=== PATIENT | female | born 1980 | race Caucasian/White ===

== ENCOUNTER 2017-04-28 10:09 | Observation (INO) | payer MEDICAID, OTHER ==
[~2017-04-28] VITALS: Ht 154.9 cm; Wt 68.0 kg
[~2017-04-28 10:09] MED LIST: [UNRECOGNIZED DRUG - OTHER]
[2017-04-28] MEDS ORDERED: LACTATED RINGER'S 1000 ML INJ 500 ML IV ONE (11:00)
--- NOTE | 2017-04-28 11:14 | PD ---
HPI Chief Complaint 34 weeks and 4 days Uterine contractions Date Seen: Apr 28, 2017 Travel History International Travel<30 Days: No Contact w/Intl Traveler<30Days: No Known Affected Area: No History of Present Illness HPI Pt is a 37 yo at 34 weeks and [address] Greenfield. Seen in her office this morning for TV ultrasound. Apparently had complete placenta previa which has now resolved. Pt reported irregular contractions in office and sent her for evaluation. Pt is in substance abuse recovery and was initially being weaned off Subotex. Has not taken in 1 week. Denies vaginal bleeding or discharge. Active movements Weeks Gestation: 34 Para: 5 : 6 History Past Medical History Narrative Medical h/o substance abuse Asthma Obstetric History Obstetric History Earlier placenta previa , resolved on US today. Past Surgical History Surgical History: No Previous Surgery Family History Family History: Negative Social History Alcohol Use: No Tobacco Use: Yes Substance Abuse: Yes Allergies-Medications (Allergen,Severity, Reaction): Coded Allergies: No Known Allergies (Verified Allergy, Unknown, 04/28/17) Home Meds Reported Medications [opiates] No Conflict Check 06/08/12 Review of Systems Except as stated in HPI: all other systems reviewed are Neg Physical Exam Narrative GENERAL: Well-nourished, well-developed patient. SKIN: Warm and dry. HEAD: Normocephalic and atraumatic. EYES: No scleral icterus. No injection or drainage. ENT: No nasal drainage noted. Mucous membranes pink. Airway patent. NECK: Supple, trachea midline. No JVD. CARDIOVASCULAR: Regular rate and rhythm without murmurs, gallops, or rubs. RESPIRATORY: Breath sounds equal bilaterally. No accessory muscle use. BREASTS: Bilateral exam showed no masses , no retractions, no nipple discharge. ABDOMEN/GI: Abdomen soft, non-tender, bowel sounds present, no rebound, no guarding Gravid to [34] weeks size Fundal Height: [34] GENITOURINARY: External Genitalia: intact and normal in appearance BUS glands: [soft] Cervix: [firm] Dilatation: [closed] Effacement: [long] Station: [-3] Presentation: [vertex] Membranes: [intact] Uterine Contractions: [rare] FHT's: Category: [1] Baseline: [130s] Reactive: [-] Variability: [good] Decels: none-] EXTREMITIES: No cyanosis or edema. BACK: Nontender without obvious deformity. No CVA tenderness. NEUROLOGICAL: Awake and alert. Motor and sensory grossly within normal limits. Five out of 5 muscle strength in all muscle groups. Normal speech. Data Data Vital Signs Reviewed: Yes [facility] Medical Record Reviewed: Yes Plan 37 yo admitted from MD's office with complaint of contractions. Pt had just had TV ultrasound in office, showing resolution of placenta previa. Pt had ultrasound her confirming NO placenta previa, and TV CL was 4.5cm. Contractions spaced out after LR bolus. I discussed case with Dr Arciniega. Pt currently in in-patient recovery. She requests 23 hour observation. She will need Subotex re-started. Diagnosis Diagnosis: Primary Impression: 34 weeks gestation of Additional Impression: Substance abuse affecting in third trimester, antepartum Constantin Canela MD Apr 28, 2017 11:13
[2017-04-28 13:16] LABS: BACTERIA, URINE RARE /hpf; BLOOD, URINE NEG (NEG); COMMENT (UR) CULT NOT INDICATED; CULTURE IF INDICATED CULT NOT INDICATED; GLUCOSE,URINE NEG (NEG); KETONE, URINE NEG (NEG); MUCUS URINE FEW /lpf (OCC); NITRITE,URINE NEG (NEG); PH, URINE 7.5 (5.0-8.5); SQUAMOUS EPITHELIAL CELL URINE 1 /hpf (0-5); URINE COLOR LIGHT-YELLOW (YELLW/STRAW)
[2017-04-28 14:21] LABS: RUBELLA IGG ANTIBODY 41.6 IU/mL (10.0-500.0); RUBELLA STATUS IMMUNE (IMMUNE)
--- NOTE | 2017-04-28 14:50 | PD.CONS ---
HPI Chief Complaint 34 weeks and 4 days Substance abuse in . Date Seen: Apr 28, 2017 Time Seen: 12:30 Travel History International Travel<30 Days: No Contact w/Intl Traveler<30Days: No Known Affected Area: No History of Present Illness HPI Pt is a 37 yo at 34 weeks and [address] Greenfield. Seen in her office this morning for TV ultrasound. Apparently had complete placenta previa which has now resolved. Pt reported irregular contractions in office and sent her for evaluation. Pt is in substance abuse recovery and was initially being weaned off Subotex. Has not taken in 1 week. Denies vaginal bleeding or discharge. Active movements Weeks Gestation: 34 Para: 5 : 6 History Past Medical History Narrative Medical Asthma h/o substance abuse, had been on Subotex until 1 week ago. Obstetric History Obstetric History x 5 term vaginal deliveries Past Surgical History Surgical History: No Previous Surgery Family History Family History: Negative Social History Alcohol Use: No Tobacco Use: Yes Substance Abuse: Yes Allergies-Medications (Allergen,Severity, Reaction): Coded Allergies: No Known Allergies (Verified Allergy, Unknown, 04/28/17) Home Meds Reported Medications [opiates] No Conflict Check 06/08/12 Physical Exam Narrative GENERAL: Well-nourished, well-developed patient. SKIN: Warm and dry. HEAD: Normocephalic and atraumatic. EYES: No scleral icterus. No injection or drainage. ENT: No nasal drainage noted. Mucous membranes pink. Airway patent. NECK: Supple, trachea midline. No JVD. CARDIOVASCULAR: Regular rate and rhythm without murmurs, gallops, or rubs. RESPIRATORY: Breath sounds equal bilaterally. No accessory muscle use. BREASTS: Bilateral exam showed no masses , no retractions, no nipple discharge. ABDOMEN/GI: Abdomen soft, non-tender, bowel sounds present, no rebound, no guarding Gravid to [-] weeks size Fundal Height: [-] GENITOURINARY: External Genitalia: intact and normal in appearance BUS glands: [-] Cervix: [-] Dilatation: [-] Effacement: [-] Station: [-] Presentation: [-] Membranes: [intact or ruptured] Uterine Contractions: [-] FHT's: Category: [-] Baseline: [-] Reactive: [-] Variability: [-] Decels: [-] EXTREMITIES: No cyanosis or edema. BACK: Nontender without obvious deformity. No CVA tenderness. NEUROLOGICAL: Awake and alert. Motor and sensory grossly within normal limits. Five out of 5 muscle strength in all muscle groups. Normal speech. Data Data Orders Orders Vital Signs (Adult) .ON ADMISSION (04/28/17 10:52) ^ Labor Status (04/28/17 10:52) Urinalysis - C+S If Indicated (04/28/17 10:52) Diet Liquid (04/28/17 Lunch) Albuterol Hfa Inh (Proair Hfa Inh) (04/28/17 11:00) Lactated Ringer's 1000 Ml Inj (Lr 1000 M (04/28/17 11:00) Ob Poc Ultrasound (04/28/17 ) Rpr With Reflex To Fta Abs (04/28/17 11:11) Rubella Immune Status (04/28/17 11:11) Vascular Access Team Consult/P PRN (04/28/17 11:23) Vascular Poc Ultrasound (04/28/17 ) Us Ob Repeat/Fu(Growth) (04/28/17 ) Ob (2e) Additional Admit Info (04/28/17 14:04) Labs Laboratory Tests Test 04/28/17 12:00 04/28/17 12:50 Urine Color LIGHT-YELLOW Urine Turbidity CLEAR Urine pH 7.5 Urine Specific [place] 1.008 Urine Protein NEG Urine Glucose (UA) NEG Urine Ketones NEG Urine Occult Blood NEG Urine Nitrite NEG Urine Bilirubin NEG Urine Urobilinogen LESS THAN 2.0 Urine Leukocyte Esterase TRACE Urine RBC LESS THAN 1 Urine WBC LESS THAN 1 Urine Squamous Epithelial Cells 1 Urine Bacteria RARE Urine Mucus FEW Microscopic Urinalysis Comment CULT NOT INDICATED Rubella Immunity Screen IMMUNE Rubella Antibody, Quantitative 41.6 Constantin Canela MD Apr 28, 2017 14:50
[2017-04-28] MEDS ORDERED: ACETAMINOPHEN 325 MG TAB PO PRN (15:00)
[2017-04-28] MEDS ORDERED: SODIUM CHLORIDE 0.9% FLUSH 10 ML FLUSH IV FLUSH PRN (15:00)
[2017-04-28] MEDS ORDERED: ONDANSETRON ODT 4 MG TAB PO PRN (15:00)
[2017-04-28] MEDS ORDERED: DOCUSATE SODIUM 100 MG CAP PO PRN (15:00)
[2017-04-28] MEDS ORDERED: BUPRENORPHINE HCL 8 MG SUBLINGUAL TAB SL ONE (15:30)
[2017-04-28] MEDS ORDERED: TERBUTALINE INJ 1 MG/ML AMP SQ ONE (15:30)
[2017-04-28] MEDS ORDERED: PILL SPLITTER OTHER PRN (15:30)
[2017-04-28] MEDS: ALBUTEROL SULFATE 90 MCG/ACT HFA 8 GM INHALER INH PRN (15:58)
[2017-04-28 16:54] VITALS: RESP 16
[2017-04-28 19:46] VITALS: BP 126/69; PULSE 98; RESP 18; TEMP 97.9
[2017-04-28] MEDS: SODIUM CHLORIDE 0.9% FLUSH 10 ML FLUSH IV FLUSH SCH (21:00)
--- NOTE | 2017-04-28 23:54 | PD.CONS ---
HPI Chief Complaint 34+ week IUP with sonographic diagnosis of complete previa at 29 weeks-- confirmed on weekly sonogram until today when BPP indicated no previa. Infant initially breech and now vertex. Complaining of regular contractions. Complaining of severe withdrawal symptoms--sweating, goosebumps, nausea, yawning. Feels desperately that she wants to use. Date Seen: Apr 28, 2017 Time Seen: 08:00 Travel History International Travel<30 Days: No Contact w/Intl Traveler<30Days: No Known Affected Area: No History of Present Illness HPI 37 yo swf well known to [facility], correctional system and health care system-- first brought to my office from detention at about 29 weeks. Incarcerated for drug violations. Had been using 6 to 8 of the 8 mg dilaudid pills IV when incarcerated. Started on subutex 2 mg in detention with significant withdrawal symptoms initially, but none at the time of the 29 week evaluation. At that visit, sonogram showed complete previa. Court petitioned to divert patient from detention to [facility] on subutex, or from detention to [facility] for detox and transition to eating disorder specialist abstinence. Delay in transition due to confusion at the level of the public relations senior associate and court order. Patient initially wanted to detox and go to [facility] opioid free in anticipation of 36 week primary section. Has been at detox since Monday and is highly symptomatic and miserable. Has marked abdominal pain but no bleeding. Weekly BPP today showed NO previa and now vertex with normal KIMBERLEE and cervical length. Because of regular UCs, sent to OB triage for further evaluation. At [facility] noted on ultrasound to NOT have a previa. Other parameters consistent with those found in our office. Contractions initially stopped with hydration, but then resumed, requiring a dose of terbutaline. Patient has changed her mind and desires to resume MAT. Johanna has been to [facility] before. She has been diverted from detention to [facility] before , and has eloped. She acknowledges she is at risk of eloping again--especially since she now does not fear a bleeding crisis from a previa and may not need the 36 week primary section on 05/10/17 as planned. Weeks Gestation: 34 History Obstetric History Obstetric History prior term vaginal deliveries all children with their respective fathers or adopted out. Past Surgical History Surgical History: No Previous Surgery Family History Family History: Negative Allergies-Medications (Allergen,Severity, Reaction): Coded Allergies: No Known Allergies (Verified Allergy, Unknown, 04/28/17) Home Meds Reported Medications [opiates] No Conflict Check 06/08/12 Review of Systems Gastrointestinal: Nausea, Constipation Musculoskeletal: Cramping Physical Exam Vital Signs Date Time Temp Pulse Resp B/P (MAP) Pulse Ox O2 Delivery O2 Flow Rate FiO2 04/28/17 19:46 97.9 04/28/17 19:46 98 18 126/69 (88) 04/28/17 16:54 16 Narrative GENERAL: Well-nourished, well-developed patient. SKIN: Warm and dry. HEAD: Normocephalic and atraumatic. EYES: No scleral icterus. No injection or drainage. ENT: No nasal drainage noted. Mucous membranes pink. Airway patent. NECK: Supple, trachea midline. No JVD. CARDIOVASCULAR: Regular rate and rhythm without murmurs, gallops, or rubs. RESPIRATORY: Breath sounds equal bilaterally. No accessory muscle use. BREASTS: Bilateral exam showed no masses , no retractions, no nipple discharge. ABDOMEN/GI: Abdomen soft, non-tender, bowel sounds present, no rebound, no guarding 34 cm FH strip category one regular UCs since resolved cervix long,closed,soft and posterior EXTREMITIES: No cyanosis or edema. BACK: Nontender without obvious deformity. No CVA tenderness. NEUROLOGICAL: Awake and alert. Motor and sensory grossly within normal limits. Five out of 5 muscle strength in all muscle groups. Normal speech. Data Data Vital Signs Reviewed: Yes Orders Orders Vital Signs (Adult) .ON ADMISSION (04/28/17 10:52) ^ Labor Status (04/28/17 10:52) Urinalysis - C+S If Indicated (04/28/17 10:52) Diet Liquid (04/28/17 Lunch) Albuterol Hfa Inh (Proair Hfa Inh) (04/28/17 11:00) Lactated Ringer's 1000 Ml Inj (Lr 1000 M (04/28/17 11:00) Ob Poc Ultrasound (04/28/17 ) Rpr With Reflex To Fta Abs (04/28/17 11:11) Rubella Immune Status (04/28/17 11:11) Vascular Access Team Consult/P PRN (04/28/17 11:23) Vascular Poc Ultrasound (04/28/17 ) Us Ob Repeat/Fu(Growth) (04/28/17 ) Ob (2e) Additional Admit Info (04/28/17 14:04) Place In Observation (04/28/17 ) Place In Observation (04/28/17 ) Diet Regular Basic (04/28/17 Dinner) Vital Signs (Adult) [id number] AWAKE (04/28/17 15:00) Heart (04/28/17 15:00) Activity Oob Ad Leigh (04/28/17 15:00) Acetaminophen (Tylenol) (04/28/17 15:00) Szgmvjlu-Ylg-Aprqe-Iron Prenat (Stuartna (04/29/17 09:00) Docusate Sodium (Colace) (04/28/17 15:00) Sodium Chloride 0.9% Flush (Ns Flush) (04/28/17 21:00) Sodium Chloride 0.9% Flush (Ns Flush) (04/28/17 15:00) Zolpidem (Ambien) (04/28/17 21:00) Ondansetron Odt (Zofran Odt) (04/28/17 15:00) Buprenorphine (Buprenorphine) (04/28/17 15:30) Pill Splitter (Pill Splitter) (04/28/17 15:30) Terbutaline Inj (Brethine Inj) (04/28/17 15:30) Labs Laboratory Tests Test 04/28/17 12:00 04/28/17 12:50 Urine Color LIGHT-YELLOW Urine Turbidity CLEAR Urine pH 7.5 Urine Specific [place] 1.008 Urine Protein NEG Urine Glucose (UA) NEG Urine Ketones NEG Urine Occult Blood NEG Urine Nitrite NEG Urine Bilirubin NEG Urine Urobilinogen LESS THAN 2.0 Urine Leukocyte Esterase TRACE Urine RBC LESS THAN 1 Urine WBC LESS THAN 1 Urine Squamous Epithelial Cells 1 Urine Bacteria RARE Urine Mucus FEW Microscopic Urinalysis Comment CULT NOT INDICATED Rubella Immunity Screen IMMUNE Rubella Antibody, Quantitative 41.6 MDM Medical Record Reviewed: Yes Narrative Course / MDM late IUP with late care and substance use disorder--diagnosed with previa at 29 weeks--appears to be resolved at 34 weeks substance use disorder -- currently court ordered to detox and [facility], but now requested MAT which is an available choice at [facility]. History of running from eating disorder specialist past and with acknowledged risk of doinng this again--especially since she no longer fears a bleeding crisis from a previa Initial plan to section at 36 weeks needs to be reassessed. For now, she has received 4 mg buprenorphine x 1. No further medication has been requested. Will reassess Monday and review options and course with patient, Dr. Chávez and Jean Pierre GURROLA Pamela Parke MD Apr 28, 2017 23:54
[2017-04-29] VITALS (10 sets, daily range): BP systolic 108–135; BP diastolic 62–79; PULSE 84–110; RESP 16–18; TEMP 97.6–98.3
[2017-04-29] MEDS: ZOLPIDEM TARTRATE 5 MG TAB PO PRN ×2 (01:00→21:52)
--- NOTE | 2017-04-29 11:04 | PD.OB.ANTE ---
Subjective Interval History Johanna is in room with her daughter and mom. She is feeling well overall. She is have intermittent contractions and discharge. She has no bleeding. Two ultrasounds at two different offices suggest there is NO previa after six prior sonograms have documented complete previa. She was feeling terrible yesterday in detox, trying to wean from the 2 mg subutex daily and asked if maintenance with 2 mg subutex can be resumed. COWs was 15 GFM surveillance with two sonograms yesterday and continuous monitoring today reassuring. Antepartum ROS: Reports: movement normal, Contractions Objective Vital Signs Vital Signs Date Time Temp Pulse Resp B/P (MAP) Pulse Ox O2 Delivery O2 Flow Rate FiO2 04/29/17 07:53 97.6 18 04/29/17 07:52 89 113/68 (83) 04/29/17 01:11 97.8 18 04/29/17 01:08 84 109/65 (80) 04/28/17 19:46 97.9 04/28/17 19:46 98 18 126/69 (88) 04/28/17 16:54 16 Lab & Micro Results Test 04/28/17 12:00 04/28/17 12:50 Urine Color LIGHT-YELLOW Urine Turbidity CLEAR Urine pH 7.5 Urine Specific [place] 1.008 Urine Protein NEG mg/dL Urine Glucose (UA) NEG mg/dL Urine Ketones NEG mg/dL Urine Occult Blood NEG Urine Nitrite NEG Urine Bilirubin NEG Urine Urobilinogen LESS THAN 2.0 MG/DL Urine Leukocyte Esterase TRACE Urine RBC LESS THAN 1 /hpf Urine WBC LESS THAN 1 /hpf Urine Squamous Epithelial Cells 1 /hpf Urine Bacteria RARE /hpf Urine Mucus FEW /lpf Microscopic Urinalysis Comment CULT NOT INDICATED Rubella Immunity Screen IMMUNE Rubella Antibody, Quantitative 41.6 IU/mL Physical Exam GENERAL: Well-nourished, well-developed patient. CARDIOVASCULAR: Regular rate and rhythm without murmurs, gallops, or rubs. RESPIRATORY: Breath sounds equal bilaterally. No accessory muscle use. ABDOMEN/GI: Abdomen soft, non-tender. Fundus: [-] GENITOURINARY: External Genitalia: intact and normal in appearance thinning cervix compared to yesterday. External os open and internal os closed. Mucus discharge noted No bleeding,. strip category one EXTREMITIES: No cyanosis or edema, non-tender, without signs of DVT. Assessment and Plan Problem List: (1) 34 weeks gestation of ICD Codes: Z3A.34 - 34 weeks gestation of Status: Acute (2) Substance abuse affecting in third trimester, antepartum ICD Codes: O99.323 - Drug use complicating , third trimester; F19.10 - Other psychoactive substance abuse, uncomplicated Status: Acute Assessment and Plan 45 minute discussion with mom, patient indicates she is best treated with MAT than abstinence. She has been addicted since the tenth grade. She has previously eloped from [facility]. She has been at multiple programs. She strongly desires to be in a program of recovery. I strongly believe it needs to be MAT based at least for the 6 months after she adopts this child out. I am recommending she return to [facility] on 2 mg subutex daily. I want her watched 48 hours more, to have a repeat BPP monday to again confirm lack of previa and then taken to [facility]. Should still have bed there. If she continues to contract and have cervical change, we will repeat sono over weekend. Any bleeding will sonogram and assess. Patient and mom agree. Raya Greenfield MD Apr 29, 2017 11:04
[2017-04-29] MEDS ORDERED: SODIUM CHLORIDE 0.9% FLUSH 10 ML FLUSH IV FLUSH PRN (11:15)
[2017-04-29] MEDS: BETAMETHASONE SOD PHOS/ACETATE SUSP 30 MG/5 ML VIAL IM SCH (12:06)
[2017-04-29 16:24] LABS: AUTOMATED NEUTROPHIL # 8.4 TH/MM3 (1.8-7.7); BASOPHIL % 0.4 % (0.0-2.0); EOSINOPHIL % 0.2 % (0.0-4.0); HEMATOCRIT 35.3 % (35.0-46.0); HEMO FLAGS DIFF FINAL; LYMPHOCYTE # 1.3 TH/MM3 (1.0-4.8); MEAN CELL VOLUME 90.1 FL (80.0-100.0); MEAN CORPUSCULAR HEMOGLOBIN 31.3 PG (27.0-34.0); MEAN CORPUSCULAR HGB CONC 34.7 % (32.0-36.0); NEUT % 84.4 % (16.0-70.0); PLATELET COUNT 162 TH/MM3 (150-450); RED BLOOD COUNT 3.92 MIL/MM3 (4.00-5.30); RED CELL DISTRIBUTION WIDTH 16.4 % (11.6-17.2); WHITE BLOOD COUNT 9.9 TH/MM3 (4.0-11.0)
[2017-04-29] MEDS: MULTIVIT/MIN/PREN/FOL AC/IRON PRENATAL TAB PO SCH (16:32)
[2017-04-29] MEDS: FAMOTIDINE 20 MG TAB PO PRN (19:25)
[2017-04-29] MEDS: SODIUM CHLORIDE 0.9% FLUSH 10 ML FLUSH IV FLUSH SCH ×2 (19:25→21:00)
[2017-04-30 07:43] VITALS: BP 113/66; PULSE 85; RESP 16; TEMP 97.7
[2017-04-30] MEDS: SODIUM CHLORIDE 0.9% FLUSH 10 ML FLUSH IV FLUSH SCH ×4 (09:00→21:00)
[2017-04-30] MEDS: BETAMETHASONE SOD PHOS/ACETATE SUSP 30 MG/5 ML VIAL IM SCH (12:07)
[2017-04-30 12:09] VITALS: BP 129/74; PULSE 92; RESP 16
[2017-04-30] MEDS: MULTIVIT/MIN/PREN/FOL AC/IRON PRENATAL TAB PO SCH (16:22)
[2017-04-30 16:25] VITALS: BP 134/80; PULSE 109
[2017-04-30 19:28] VITALS: RESP 18
[2017-04-30 22:54] VITALS: BP 127/73; PULSE 107; RESP 18; TEMP 97.8
[2017-04-30] MEDS: ALBUTEROL SULFATE 90 MCG/ACT HFA 8 GM INHALER INH PRN (23:32)
[2017-04-30] MEDS: ZOLPIDEM TARTRATE 5 MG TAB PO PRN (23:32)
[2017-05-01 07:17] VITALS: BP 103/59; PULSE 92; RESP 18; TEMP 98
--- NOTE | 2017-05-01 08:44 | PD.OB.ANTE ---
Subjective Diagnosis: (1) 34 weeks gestation of (2) Substance abuse affecting in third trimester, antepartum Interval History Doing well with no bleeding no contractions slight withdrawal with suboxone as compared to subutex? will continue subutex 2 mg at [facility] with vistaril weekly BBP need to address when and how to deliver after BPP Objective Vital Signs Vital Signs Date Time Temp Pulse Resp B/P (MAP) Pulse Ox O2 Delivery O2 Flow Rate FiO2 05/01/17 07:17 92 103/59 (74) 05/01/17 07:17 98.0 18 04/30/17 22:54 97.8 107 18 127/73 (91) 04/30/17 19:28 18 04/30/17 16:25 109 134/80 (98) 04/30/17 12:09 92 16 129/74 (92) Physical Exam GENERAL: Well-nourished, well-developed patient. CARDIOVASCULAR: Regular rate and rhythm without murmurs, gallops, or rubs. RESPIRATORY: Breath sounds equal bilaterally. No accessory muscle use. ABDOMEN/GI: Abdomen soft, non-tender. Fundus: [-] GENITOURINARY: External Genitalia: intact and normal in appearance Cervix: [-] Dilatation: [-] Effacement: [-] Station: [-] Presentation: [-] Membranes: [-] Uterine Contractions: [-] FHT's: Category: [-] Baseline: [-] Reactive: [-] Variability: [-] Decels: [-] EXTREMITIES: No cyanosis or edema, non-tender, without signs of DVT. Assessment and Plan Problem List: (1) 34 weeks gestation of ICD Codes: Z3A.34 - 34 weeks gestation of Status: Acute (2) Substance abuse affecting in third trimester, antepartum ICD Codes: O99.323 - Drug use complicating , third trimester; F19.10 - Other psychoactive substance abuse, uncomplicated Status: Acute Assessment and Plan 45 minute discussion with mom, patient indicates she is best treated with MAT than abstinence. She has been addicted since the tenth grade. She has previously eloped from [facility]. She has been at multiple programs. She strongly desires to be in a program of recovery. I strongly believe it needs to be MAT based at least for the 6 months after she adopts this child out. I am recommending she return to [facility] on 2 mg subutex daily. I want her watched 48 hours more, to have a repeat BPP monday to again confirm lack of previa and then taken to [facility]. Should still have bed there. If she continues to contract and have cervical change, we will repeat sono over weekend. Any bleeding will sonogram and assess. Patient and mom agree. Raya Greenfield MD May 01, 2017 08:44
[2017-05-01] MEDS ORDERED: VIST50CA PO (08:46)
--- NOTE | 2017-05-01 08:46 | HHI.DCPOC ---
Discharge Care Plan Report Symptoms to Your Doctor -Temperature above 100.5 degrees -Redness, of incision or excessive or foul smelling drainage -Unusual pain or calf pain -Increased vaginal bleeding -Painful or difficulty urinating -Feelings of extreme sadness or anxiety after 2 weeks Goals to Promote Your Health * To prevent worsening of your condition and complications * To maintain your health at the optimal level Directions to Meet Your Goals Take your medications as prescribed Follow your dietary instruction Follow activity as directed Ensure plenty of rest for recovery Drink fluids for hydration Keep your appointments as scheduled Take your immunizations and boosters as scheduled If your symptoms worsen call your PCP, if no PCP go to Urgent Care Center or Emergency Room Smoking is Dangerous to Your Health. Avoid second hand smoke Call the 24-hour crisis hotline for domestic abuse at Raya Greenfield MD May 01, 2017 08:46
[2017-05-01] MEDS: FAMOTIDINE 20 MG TAB PO PRN (08:54)
[2017-05-01] MEDS: MULTIVIT/MIN/PREN/FOL AC/IRON PRENATAL TAB PO SCH (08:54)
[2017-05-01] MEDS: ALBUTEROL SULFATE 90 MCG/ACT HFA 8 GM INHALER INH PRN (08:55)
[2017-05-01 10:59] VITALS: BP 108/70; PULSE 89; TEMP 98.2
[2017-05-01 11:00] VITALS: RESP 18
== END 2017-05-01 12:22 | disposition home or self-care (01) ==
LOC: HOBED 10:09 → H2EA 14:15
PROVIDERS: ADMIT Obstetrics & Gynecology; ATTEND Obstetrics & Gynecology
DX: O60.03 Preterm labor without delivery, third trimester (principal); O99.323 Drug use complicating pregnancy, third trimester; F19.10 Other psychoactive substance abuse, uncomplicated; K59.00 Constipation, unspecified; R11.0 Nausea; R10.9 Unspecified abdominal pain; O99.513 Diseases of the respiratory system complicating pregnancy, third trimester; J45.909 Unspecified asthma, uncomplicated; Z3A.34 34 weeks gestation of pregnancy
CPT/HCPCS: 59025; 76816; 76819; 81001; 85025; 86592; 86762; 96360; 99285; G0378; J0702; J3105; J7120

== ENCOUNTER 2017-05-23 23:05 | Emergency (ER) | payer MEDICAID ==
[~2017-05-23 23:05] MED LIST changes: +VIST50CA PO
--- NOTE | 2017-05-23 23:52 | PD ---
HPI Chief Complaint Contractions Date Seen: May 23, 2017 Time Seen: 23:45 Travel History International Travel<30 Days: No Contact w/Intl Traveler<30Days: No Known Affected Area: No History of Present Illness HPI Patient is 37-year-old white female at 38 weeks and goes to see Dr. Greenfield for care presents complaining of contractions, denies bleeding or leakage of fluid. heart rate tracing is reactive, and she is having it contractions every 3-4 minutes Weeks Gestation: 38 Para: 5 : 6 History Obstetric History Obstetric History 5 vaginal deliveries Social History Alcohol Use: No Tobacco Use: Yes Substance Abuse: No Allergies-Medications (Allergen,Severity, Reaction): Coded Allergies: No Known Allergies (Verified Allergy, Unknown, 04/28/17) Home Meds Active Scripts Hydroxyzine Pamoate (Vistaril) 50 Mg Cap, 50 MG PO QID Y for anxiety, #90 CAP 0 Refills Prov:Raya Greenfield MD 05/01/17 Reported Medications [opiates] No Conflict Check 06/08/12 Review of Systems General / Constitutional: No: Fever, Weight Gain, Chills, Other Eyes: No: Diploplia, Blurred Vision, Visual changes, Pain, Photophobia HENT: No: Headaches, Vertigo, Lightheadedness Cardiovascular: No: Irregular Rhythm, Chest Pain or Discomfort, Palpitations, Tachycardia, Syncope, Varicosities, Edema, Cyanosis Respiratory: No: Cough, Short of Breath, Other Gastrointestinal: No: Nausea, Vomiting, Diarrhea Genitourinary: No: Decreased Urinary Output, Oliguria Musculoskeletal: No: Limited ROM, Weakness, Cramping, Edema, Pain Skin: No Rash, No Itching, No Dryness, No Lumps, No Change in Pigmentation, No Change in Nails, No Alopecia, No Lesions Neurologic: No: Weakness, Dizziness, Syncope, Focal Abnormalities, Coordination Problem, Headache, Slurred Speech, Seizures Psychiatric: No: Depression, Suicidal Ideations, Homicidal Ideation Endocrine: No: Heat Intolerance, Cold Intolerance, Polydipsia, Polyuria, Other Physical Exam Narrative GENERAL: Well-nourished, well-developed patient. SKIN: Warm and dry. HEAD: Normocephalic and atraumatic. EYES: No scleral icterus. No injection or drainage. ENT: No nasal drainage noted. Mucous membranes pink. Airway patent. NECK: Supple, trachea midline. No JVD. CARDIOVASCULAR: Regular rate and rhythm without murmurs, gallops, or rubs. RESPIRATORY: Breath sounds equal bilaterally. No accessory muscle use. BREASTS: Bilateral exam showed no masses , no retractions, no nipple discharge. ABDOMEN/GI: Abdomen soft, non-tender, bowel sounds present, no rebound, no guarding Gravid to [-38] weeks size Fundal Height: [38-] GENITOURINARY: External Genitalia: intact and normal in appearance BUS glands: [-] Cervix: [-] Dilatation: [-1] Effacement: [-thick] Station: [-3] Presentation: [vtx-] Membranes: [intact ] Uterine Contractions: [-q 3-4 min] FHT's: Category: [1-] Baseline: [133-] Reactive: [-yes] Variability: [mod-] Decels: [none-] EXTREMITIES: No cyanosis or edema. BACK: Nontender without obvious deformity. No CVA tenderness. NEUROLOGICAL: Awake and alert. Motor and sensory grossly within normal limits. Five out of 5 muscle strength in all muscle groups. Normal speech. MDM Interpretation(s) Patient is 37-year-old white female at 38 weeks presents clinically contractions, denies bleeding or leakage of fluid. heart rate tracing is reactive and she natalia every 3-4 minutes. Cervix is fingertip thick and very high. Plan Plan to discharge patient home to bedrest, increase fluids for hydration, Tylenol as needed for pain. And to follow-up with her OB provider in the usual way. Return here sooner if pains increase or if she has bleeding or leakage of fluid Diagnosis Diagnosis: Primary Impression: Madhav Hick's contraction Additional Impression: 38 weeks gestation of Disposition: DISCHARGE HOME Condition: Stable Vega Decker II, MD May 23, 2017 23:52
--- NOTE | 2017-05-24 12:37 | MH ---
cc: CHIDI LOUIS DATE OF ADMISSION 05/23/2017 REASON FOR ADMISSION 38-2/7 week intrauterine with opioid maintenance on Subutex and significant polyhydramnios. Secondary diagnosis of resolved previa and history of precipitous deliveries. HISTORY OF PRESENT CONDITION The patient is a 38-year-old single white female 6, para 5-0-0-5 with an LMP in July 2016 and EDC of June 05, 2017. She is currently at 38-2/7 weeks by this dating. She was first seen in my office at 27 weeks on March 08 and at that time she was noted to have a complete previa which persisted through 36 completed weeks, but then became a low-lying placenta that was anterior with a vertex . She was diverted with a [facility] at from the care home to [facility] at the end of March. At [facility] she is on 2 mg of Subutex in the morning and 4 mg of Subutex in the evening. She was initially scheduled for a with a tubal ligation at 36 weeks, but with the resolution of the previa, we have allowed her to go initially intending 39 weeks and induction. However, today on her biophysical profile, her fluid level exceeds 30 cm and the decision was made to proceed with delivery as there is a concern if she were to rupture at [facility]) and developed a placental abruption that she would not have time to get to a hospital. The baby otherwise had reasonable surveillance with an 8 biophysical profile. MEDICATIONS Currently, her only medication is: 1. vitamin 2. Subutex as described. 3. She has received betamethasone in the past. She had no gestational diabetes, hypertension or labor. LABORATORY DATA Her blood type is A+. Her hemoglobin was 10.8. Pap smear was normal. She is negative for hepatitis B. She is positive for hepatitis C. She is HIV nonreactive, had no chlamydia or gonorrhea. Diabetic screen is 84. Her Group B strep is negative. PHYSICAL EXAM On physical exam, she is a well-developed, well-nourished white female in no acute distress. VITAL SIGNS: Her blood pressure is 100/70. Her weight is 160. Her urine is negative. NECK: She had no thyroid enlargement. LUNGS: Her lungs are clear to auscultation. HEART: Rate and rhythm are regular. ABDOMEN: Fundus is 44 cm. heart rate is in the 140's. Estimated weight is 7-1/2 pounds. PELVIC: Clinically adequate and proven. Cervix is very anterior about 50%, medium in firmness and finger-tip. EXTREMITIES: Show minimal swelling. ASSESSMENT AND PLAN Admit her for Cytotec induction and anticipate natural delivery. If she were to bleed heavily suggesting a portion of placenta that is still over the ostia, she will be taken for section and tubal at the same time. She has signed consents. The risks, benefits, and expectations of this course of action have been reviewed with her. The concern of her being at [facility] and being taken by the ambulance to [facility] where they do not have a Subutex program was not acceptable to her at this time. She has signed consents and agrees to proceed. MD WALESKA San/OSCAR /12:04 PM /12:23 PM
[2017-05-24] MEDS ORDERED: PREN29TA PO (14:01)
[2017-05-24] MEDS ORDERED: SUBUTEX PO ×3 (14:04→14:07)
[2017-05-24] MEDS ORDERED: ALBU0.63 NEB ×2 (14:08→14:09)
== END 2017-05-24 00:10 | disposition home or self-care (01) ==
LOC: HOBED 23:05
DX: O47.1 False labor at or after 37 completed weeks of gestation (principal); Z3A.38 38 weeks gestation of pregnancy
CPT/HCPCS: 59025

== ENCOUNTER 2017-05-24 12:38 | Inpatient (IN) | payer MEDICAID ==
[2017-05-24] VITALS (78 sets, daily range): BP systolic 83–163; BP diastolic 46–122; PULSE 85–131; RESP 15–18; TEMP 98.7–98.8; O2SAT 97–100
[~2017-05-24] VITALS: Ht 154.9 cm; Wt 72.0 kg
[2017-05-24] MEDS ORDERED: LACTATED RINGER'S 1000 ML INJ 1,000 ML IV PRN (13:13)
[2017-05-24] MEDS ORDERED: CITRIC ACID-SODIUM CITRATE LIQ 30 ML UDC PO SCH (13:15)
[2017-05-24] MEDS ORDERED: MINERAL OIL 10 ML VIAL TOPICAL PRN (13:15)
[2017-05-24] MEDS ORDERED: OXYTOCIN 30 UNITS-500ML PREMIX 500 ML IV ONE (13:15)
[2017-05-24] MEDS ORDERED: SODIUM CHLORID 0.9% 500 ML INJ 500 ML IV PRN (13:15)
[2017-05-24] MEDS ORDERED: LIDOCAINE HCL 1% 50 ML VIAL INFIL PRN (13:15)
[2017-05-24] MEDS ORDERED: SODIUM CHLORIDE 0.9% FLUSH 10 ML FLUSH IV FLUSH PRN (13:15)
[2017-05-24] MEDS ORDERED: LIDOCAINE HCL 1% 50 ML VIAL I-DERMAL PRN (13:15)
[2017-05-24] MEDS ORDERED: SODIUM CHLOR 0.9% 1000 ML INJ 1,000 ML IV PRN (13:33)
--- NOTE | 2017-05-24 13:35 | HHI.HP ---
HPI Chief Complaint polyhydramnios at 38 4/7 weeks MAT with subutex hx of precipitous labors previa until 36 weeks Date Seen: May 24, 2017 Time Seen: 13:32 Travel History International Travel<30 Days: No Contact w/Intl Traveler<30Days: No Known Affected Area: No History of Present Illness HPI full H & P dictated Transferred to my care at 27 weeks through [facility]. Diverted to [facility] at 33 weeks. Initial previa found to be resolved at 36 weeks. Hx of precipitous labors and in [place]. On subutex 6- 8 mg daily. Allergies-Medications (Allergen,Severity, Reaction): Coded Allergies: No Known Allergies (Verified Allergy, Unknown, 04/28/17) Home Meds Active Scripts Hydroxyzine Pamoate (Vistaril) 50 Mg Cap, 50 MG PO QID Y for anxiety, #90 CAP 0 Refills Prov:Raya Greenfield MD 05/01/17 Reported Medications [opiates] No Conflict Check 06/08/12 Physical Exam Narrative GENERAL: Well-nourished, well-developed patient. SKIN: Warm and dry. HEAD: Normocephalic and atraumatic. EYES: No scleral icterus. No injection or drainage. ENT: No nasal drainage noted. Mucous membranes pink. Airway patent. NECK: Supple, trachea midline. No JVD. CARDIOVASCULAR: Regular rate and rhythm without murmurs, gallops, or rubs. RESPIRATORY: Breath sounds equal bilaterally. No accessory muscle use. BREASTS: Bilateral exam showed no masses , no retractions, no nipple discharge. ABDOMEN/GI: Abdomen soft, non-tender, bowel sounds present, no rebound, no guarding Gravid to [-] weeks size Fundal Height: [-] GENITOURINARY: External Genitalia: intact and normal in appearance BUS glands: [-] Cervix: [-] Dilatation: [-] Effacement: [-] Station: [-] Presentation: [-] Membranes: [intact or ruptured] Uterine Contractions: [-] FHT's: Category: [-] Baseline: [-] Reactive: [-] Variability: [-] Decels: [-] EXTREMITIES: No cyanosis or edema. BACK: Nontender without obvious deformity. No CVA tenderness. NEUROLOGICAL: Awake and alert. Motor and sensory grossly within normal limits. Five out of 5 muscle strength in all muscle groups. Normal speech. Caprini VTE Risk Assessment Caprini VTE Risk Assessment: No/Low Risk (score <= 1) Caprini Risk Assessment Model Point Value = 1 Point Value = 2 Point Value = 3 Point Value = 5 Age 41-60 Minor surgery BMI > 25 kg/m2 Swollen legs Varicose veins or History of unexplained or recurrent spontaneous Oral contraceptives or hormone replacement Sepsis (< 1 month) Serious lung disease, including pneumonia (< 1 month) Abnormal pulmonary function Acute myocardial infarction Congestive heart failure (< 1 month) History of inflammatory bowel disease Medical patient at bed rest Age 61-74 Arthroscopic surgery Major open surgery (> 45 min) Laparoscopic surgery (> 45 min) Malignancy Confined to bed (> 72 hours) Immobilizing plaster cast Central venous access Age >= 75 History of VTE Family history of VTE Factor V Leiden Prothrombin [id number] Lupus anticoagulant Anticardiolipin antibodies Elevated serum homocysteine Heparin-induced thrombocytopenia Other congenital or acquired thrombophilia Stroke (< 1 month) Elective arthroplasty Hip, pelvis, or leg fracture Acute spinal cord injury (< 1 month) Prophylaxis Regimen Total Risk Factor Score Risk Level Prophylaxis Regimen 0-1 Low Early ambulation 2 Moderate Order ONE of the following: *Sequential Compression Device (SCD) *Heparin 5000 units SQ BID 3-4 Higher Order ONE of the following medications: *Heparin 5000 units SQ TID *Enoxaparin/Lovenox 40 mg SQ daily (WT < 150 kg, CrCl > 30 mL/min) *Enoxaparin/Lovenox 30 mg SQ daily (WT < 150 kg, CrCl > 10-29 mL/min) *Enoxaparin/Lovenox 30 mg SQ BID (WT < 150 kg, CrCl > 30 mL/min) AND/OR *Sequential Compression Device (SCD) 5 or more Highest Order ONE of the following medications: *Heparin 5000 units SQ TID (Preferred with Epidurals) *Enoxaparin/Lovenox 40 mg SQ daily (WT < 150 kg, CrCl > 30 mL/min) *Enoxaparin/Lovenox 30 mg SQ daily (WT < 150 kg, CrCl > 10-29 mL/min) *Enoxaparin/Lovenox 30 mg SQ BID (WT < 150 kg, CrCl > 30 mL/min) AND *Sequential Compression Device (SCD) Data Data Orders Orders Admit To Inpatient (05/24/17 ) Code Status (05/24/17 13:13) Vital Signs (Adult) .Per protocol (05/24/17 13:13) Heart (05/24/17 13:13) Amnioinfusion (05/24/17 13:13) Urinary Catheter Management .ONCE (05/24/17 13:13) Lactated Ringer's 1000 Ml Inj (Lr 1000 M (05/24/17 13:13) Lactated Ringer's 1000 Ml Inj (Lr 1000 M (05/24/17 13:13) Sodium Chlorid 0.9% 500 Ml Inj (Ns 500 M (05/24/17 13:15) Sodium Chlor 0.9% 1000 Ml Inj (Ns 1000 M (05/24/17 13:33) Lidocaine 1% Inj (50 Ml) (Xylocaine 1% I (05/24/17 13:15) Citric Acid-Sodium Citrate Liq (Bicitra (05/24/17 13:15) Fentanyl Inj (Fentanyl Inj) (05/24/17 13:15) Fentanyl Inj (Fentanyl Inj) (05/24/17 13:15) Complete Blood Count With Diff (05/24/17 13:13) Hold Clot (05/24/17 13:13) Abo/Rh Blood Type (05/24/17 13:13) Urinalysis - C+S If Indicated (05/24/17 13:13) Drug Screen, Random Urine (05/24/17 13:13) Resp Oxygen Non Rebreathe Mask (05/24/17 ) ^ Epidural / Intrathecal Infus (05/24/17 13:13) Oxytocin 30 Units-500ml Premix (Pitocin (05/24/17 13:15) Lidocaine 1% Inj (50 Ml) (Xylocaine 1% I (05/24/17 13:15) Light Mineral Oil (Muri-Lube Oil) (05/24/17 13:15) Admit To Inpatient (05/24/17 ) Diet Regular Basic (05/24/17 Lunch) ^ Labor Induction (05/24/17 13:13) ^ Vaginal Insert (05/24/17 13:13) ^ Vaginal Lavage (05/24/17 13:13) Heart (05/24/17 13:13) Sodium Chloride 0.9% Flush (Ns Flush) (05/24/17 21:00) Sodium Chloride 0.9% Flush (Ns Flush) (05/24/17 13:15) Dinoprostone Vag Insert (Cervidil Vag In (05/24/17 14:00) Inpatient Certification (05/24/17 ) Specimen To Be Collected PRN (05/24/17 13:13) Specimen To Be Collected PRN (05/24/17 13:13) Buprenorphine (Buprenorphine) (05/24/17 21:00) Raya Greenfield MD May 24, 2017 13:34
[2017-05-24 13:48] LABS: BILIRUBIN, URINE NEG (NEG); BLOOD, URINE TRACE (NEG); GLUCOSE,URINE NEG (NEG); KETONE, URINE NEG (NEG); NITRITE,URINE NEG (NEG); PH, URINE 6.5 (5.0-8.5); SQUAMOUS EPITHELIAL CELL URINE 1 /hpf (0-5); TRANSITIONAL EPI CELLS, URINE <1 /hpf; URINE COLOR YELLOW (YELLW/STRAW); URINE LEUKOCYTE ESTERASE NEG (NEG)
[2017-05-24] MEDS ORDERED: DINOPROSTONE 10 MG VAG INSERT VAGINAL ONE (14:00)
[2017-05-24] MEDS ORDERED: PREN29TA PO (14:01)
[2017-05-24] MEDS ORDERED: SUBUTEX PO ×3 (14:04→14:07)
[2017-05-24] MEDS ORDERED: ALBU0.63 NEB ×2 (14:08→14:09)
[2017-05-24] MEDS: LACTATED RINGER'S 1000 ML INJ 1,000 ML IV SCH ×2 (14:32→21:38)
[2017-05-24 15:52] LABS: AUTOMATED NEUTROPHIL # 6.9 TH/MM3 (1.8-7.7); BASOPHIL % 0.3 % (0.0-2.0); EOSINOPHIL # 0.1 TH/MM3 (0-0.4); EOSINOPHIL % 1.4 % (0.0-4.0); HEMATOCRIT 32.6 % (35.0-46.0); HEMOGLOBIN 11.4 GM/DL (11.6-15.3); LYMPH % 18.3 % (9.0-44.0); LYMPHOCYTE # 1.7 TH/MM3 (1.0-4.8); MEAN CELL VOLUME 90.2 FL (80.0-100.0); MEAN CORPUSCULAR HEMOGLOBIN 31.5 PG (27.0-34.0); MEAN CORPUSCULAR HGB CONC 34.9 % (32.0-36.0); MEAN PLATELET VOLUME 8.8 FL (7.0-11.0); MONO % 5.2 % (0.0-8.0); MONOCYTE # 0.5 TH/MM3 (0-0.9); NEUT % 74.8 % (16.0-70.0); PLATELET COUNT 269 TH/MM3 (150-450); RED BLOOD COUNT 3.61 MIL/MM3 (4.00-5.30); RED CELL DISTRIBUTION WIDTH 14.5 % (11.6-17.2); WHITE BLOOD COUNT 9.2 TH/MM3 (4.0-11.0)
[2017-05-24] MEDS ORDERED: fentaNYL 2MCG-BUPIV 0.125% INJ 100 ML ONE (17:04)
--- NOTE | 2017-05-24 17:18 | PD.LABORPN ---
Subjective Subjective feeling contractions strongly Objective Vital Signs Vital Signs Date Time Temp Pulse Resp B/P (MAP) Pulse Ox O2 Delivery O2 Flow Rate FiO2 05/24/17 16:00 17 05/24/17 14:47 95 94/58 (70) Objective 2-3/75%/-2 AROM with copious fluid strip reactive Weeks Gestation: 38 Gest Age Assessed Date: May 24, 2017 Gest Age Assessed Time: 17:15 Pt started active labor?: Yes Active labor start date: May 24, 2017 Active labor start time: 17:15 Medical induction of labor?: Yes Medical induction start date: May 24, 2017 Medical induction start time: 13:00 Artificial rupture of membrane: Yes Artificial ROM date: May 24, 2017 Artifical ROM time: 17:16 Assessment/Plan Assessment and Plan at 38 + weeks with polyhydramnios on MAT and living at [facility] Baby for adoption history of quick labor 2-3/75%/-2 efw 7 pounds pelvis clinically adequate epidural and augment if needed anticipate Raya Greenfield MD May 24, 2017 17:18
[2017-05-24] MEDS ORDERED: NO SYSTEM NARCOTICS PRN (18:00)
[2017-05-24] MEDS ORDERED: DO NOT ADMINISTER ANTICOAGULANTS PRN (18:00)
[2017-05-24] MEDS ORDERED: ePHEDrine/NS 25 MG/5 ML SYRINGE IV PUSH PRN (18:00)
[2017-05-24] MEDS: fentaNYL 2MCG-BUPIV 0.125% 100 ML EPIDURAL SCH (18:52)
[2017-05-24] MEDS ORDERED: SODIUM CHLORIDE 0.9% FLUSH 10 ML FLUSH IV FLUSH SCH (21:00)
[2017-05-24] MEDS: BUPRENORPHINE HCL 8 MG SUBLINGUAL TAB SL SCH (21:38)
[2017-05-24] MEDS ORDERED: OXYTOCIN 30 UNITS/NS 500ML PREMIX IV SCH (21:45)
[2017-05-25] VITALS (20 sets, daily range): BP systolic 95–144; BP diastolic 46–96; PULSE 74–152; RESP 15–18; TEMP 97.6–101.4; O2SAT 96–97
[2017-05-25] MEDS: fentaNYL 2MCG-BUPIV 0.125% 100 ML EPIDURAL SCH (00:35)
[2017-05-25] MEDS ORDERED: LIDOCAINE HCL 1.5% PF SOLN 20 ML AMP ONE (01:15)
[2017-05-25] MEDS ORDERED: ACETAMINOPHEN 1000 MG/100 ML 100 ML IV ONE ×2 (02:43→02:45)
[2017-05-25] MEDS ORDERED: ALUMINUM/MAGNESIUM/SIMETH 30 ML CUP PO PRN (02:45)
[2017-05-25] MEDS ORDERED: ONDANSETRON ODT 4 MG TAB PO PRN (02:45)
[2017-05-25] MEDS ORDERED: SODIUM CHLORIDE 0.9% FLUSH 10 ML FLUSH IV FLUSH PRN (02:45)
[2017-05-25] MEDS ORDERED: WITCH HAZEL 50%/GLYCERIN 12.5% 40 PAD JAR TOPICAL PRN (02:45)
[2017-05-25] MEDS ORDERED: OXYTOCIN 30 UNITS-500ML PREMIX 500 ML IV SCH (02:45)
[2017-05-25] MEDS ORDERED: ZOLPIDEM TARTRATE 5 MG TAB PO PRN (02:45)
[2017-05-25] MEDS ORDERED: ACETAMINOPHEN 325 MG TAB PO PRN (02:45)
[2017-05-25] MEDS ORDERED: DOCUSATE SODIUM 50 MG/SENNA 8.6 MG TAB PO PRN (02:45)
[2017-05-25] MEDS ORDERED: BENZOCAINE 20% TOPICAL SPRAY 60 ML CAN TOPICAL PRN (02:45)
--- NOTE | 2017-05-25 02:45 | PD.OB.DELI ---
Weeks gestation: 38 Gest age assessed date: May 24, 2017 Gest age assessed time: 17:15 Pt started active labor?: Yes Active labor start date: May 24, 2017 Active labor start time: 17:15 Medical induction of labor?: Yes Medical induction start date: May 24, 2017 Medical induction start time: 13:00 Artificial rupture of membrane: Yes Artificial ROM date: May 24, 2017 Artifical ROM time: 17:16 Anesthesia: Epidural Episiotomy: None Vaginal Delivery: Forceps Presentation: Occiput posterior Nuchal Cord: x1 Delayed cord clamping (45 sec): No Shoulder Dystocia: Other (30 seconds) Infant: Male Delivery date: May 25, 2017 Delivery time: 02:42 Placenta: Spontaneous delivery Estimated blood loss: 500 Additional Information mom and baby febrile at delivery weight and apgars pending cord gas pending placement of open shank and closed semi fenestrated blades ideal in application with no lacerations indication was lack of maternal effort and sudden active bleeding -- had initial diagnosis of placental previa that resolved at 36 weeks. Bleeding resolved with delivery. Raya Greenfield MD May 25, 2017 02:45
--- NOTE | 2017-05-25 02:59 | HHI.DCPOC ---
Discharge Care Plan Report Symptoms to Your Doctor -Temperature above 100.5 degrees -Redness, of incision or excessive or foul smelling drainage -Unusual pain or calf pain -Increased vaginal bleeding -Painful or difficulty urinating -Feelings of extreme sadness or anxiety after 2 weeks Goals to Promote Your Health * To prevent worsening of your condition and complications * To maintain your health at the optimal level Directions to Meet Your Goals Take your medications as prescribed Follow your dietary instruction Follow activity as directed Ensure plenty of rest for recovery Drink fluids for hydration Keep your appointments as scheduled Take your immunizations and boosters as scheduled If your symptoms worsen call your PCP, if no PCP go to Urgent Care Center or Emergency Room Smoking is Dangerous to Your Health. Avoid second hand smoke Call the 24-hour crisis hotline for domestic abuse at Raya Greenfield MD May 25, 2017 02:59
[2017-05-25] MEDS: ACETAMINOPHEN 1000 MG/100 ML 100 ML IV SCH ×3 (03:09→14:57)
[2017-05-25] MEDS: IBUPROFEN 800 MG TAB PO PRN ×2 (04:59→21:17)
--- NOTE | 2017-05-25 07:35 | HHI.OB ---
Subjective Post Day: 0 Remarks doing well feeling better, tired, VB < menses, no n/v, not eaten since delivery. Ambulating, voiding. Objective Vitals/I&O Vital Signs Date Time Temp Pulse Resp B/P (MAP) Pulse Ox O2 Delivery O2 Flow Rate FiO2 05/25/17 03:30 100 95/46 (62) 05/25/17 03:24 15 05/25/17 03:15 105 99/61 (74) 05/25/17 03:10 16 05/25/17 03:00 104 107/55 (72) 05/25/17 02:51 105 98/67 (77) 05/25/17 02:51 17 05/25/17 02:46 125 05/25/17 02:39 101.4 05/25/17 02:30 152 134/96 (109) 05/25/17 02:16 109 144/89 (107) 05/25/17 01:46 89 104/62 (76) 05/25/17 01:30 86 122/70 (87) 05/25/17 01:15 92 118/85 (96) 05/25/17 01:00 95 110/78 (89) 05/25/17 00:45 87 117/76 (90) 05/25/17 00:30 90 120/71 (87) 05/25/17 00:15 82 113/65 (81) 05/25/17 00:00 98.6 17 05/25/17 00:00 92 107/73 (84) 05/24/17 23:45 85 118/72 (87) 05/24/17 23:30 91 112/70 (84) 05/24/17 23:18 18 05/24/17 23:15 104 115/74 (88) 05/24/17 23:00 85 112/65 (81) 05/24/17 22:45 94 112/68 (83) 05/24/17 22:40 98 05/24/17 22:35 91 05/24/17 22:30 94 125/73 (90) 05/24/17 22:30 102 05/24/17 22:25 103 05/24/17 22:20 93 05/24/17 22:15 91 05/24/17 22:15 110 121/71 (88) 05/24/17 22:12 98.8 15 05/24/17 22:10 98 100 05/24/17 22:05 103 100 05/24/17 22:00 106 05/24/17 22:00 102 118/69 (85) 100 05/24/17 21:55 110 100 05/24/17 21:50 100 99 05/24/17 21:45 105 105/68 (80) 99 05/24/17 21:45 105 05/24/17 21:40 102 99 05/24/17 21:35 97 97 05/24/17 21:30 94 05/24/17 21:30 97 05/24/17 21:30 94 99/52 (68) 05/24/17 21:25 98 05/24/17 21:25 93 05/24/17 21:20 103 05/24/17 21:20 97 05/24/17 21:15 98 05/24/17 21:15 96 05/24/17 21:15 131 05/24/17 21:15 88/71 (77) 05/24/17 21:10 97 05/24/17 21:10 96 05/24/17 21:05 99 05/24/17 21:05 95 05/24/17 21:00 97 05/24/17 21:00 94 05/24/17 21:00 92/52 (65) 05/24/17 21:00 99 05/24/17 20:55 98 05/24/17 20:55 100 05/24/17 20:50 101 05/24/17 20:50 100 05/24/17 20:45 100 05/24/17 20:45 96 05/24/17 20:45 94 97/46 (63) 05/24/17 20:40 104 100 05/24/17 20:35 106 100 05/24/17 20:30 96 05/24/17 20:30 95 95/48 (64) 100 05/24/17 20:25 98 100 05/24/17 20:20 104 100 05/24/17 20:15 100 05/24/17 20:15 94 05/24/17 20:15 106 114/48 (70) 05/24/17 20:10 100 05/24/17 20:10 97 05/24/17 20:05 100 05/24/17 20:05 106 05/24/17 20:00 101 05/24/17 20:00 97 103/61 (75) 05/24/17 20:00 100 05/24/17 19:55 100 05/24/17 19:55 100 05/24/17 19:50 100 05/24/17 19:50 99 05/24/17 19:45 100 05/24/17 19:45 107 95/60 (72) 05/24/17 19:45 105 05/24/17 19:40 99 05/24/17 19:40 99 05/24/17 19:35 99 05/24/17 19:35 110 05/24/17 19:30 99 05/24/17 19:30 102 103/70 (81) 05/24/17 19:30 105 05/24/17 19:25 99 05/24/17 19:25 98.7 15 05/24/17 19:25 102 05/24/17 19:20 99 05/24/17 19:20 99 05/24/17 19:15 104 05/24/17 19:15 100 05/24/17 19:15 97 93/58 (70) 05/24/17 19:10 107 05/24/17 19:10 100 05/24/17 19:05 102 05/24/17 19:05 99 05/24/17 19:00 103 05/24/17 19:00 109 117/72 (87) 05/24/17 19:00 100 05/24/17 18:55 102 05/24/17 18:55 100 05/24/17 18:50 100 05/24/17 18:50 96 05/24/17 18:46 101 108/65 (79) 05/24/17 18:45 92 05/24/17 18:45 98.8 05/24/17 18:45 100 05/24/17 18:45 17 05/24/17 18:15 98 05/24/17 18:15 17 05/24/17 18:15 99 119/84 (96) 05/24/17 18:10 101 105/74 (84) 05/24/17 18:10 102 05/24/17 18:05 104 110/66 (81) 05/24/17 18:05 89 05/24/17 18:00 18 05/24/17 18:00 96 05/24/17 18:00 93 109/61 (77) 05/24/17 17:57 91 104/68 (80) 05/24/17 17:56 99 83/54 (64) 05/24/17 17:55 103 05/24/17 17:51 103 124/71 (88) 05/24/17 17:50 106 05/24/17 17:45 103 163/122 (136) 05/24/17 17:40 106 05/24/17 17:40 102 128/60 (82) 05/24/17 17:35 104 05/24/17 17:35 103 124/67 (86) 05/24/17 17:30 106 05/24/17 17:30 109 17 131/63 (85) 05/24/17 17:25 99 05/24/17 17:25 116 114/63 (80) 05/24/17 17:20 102 113/61 (78) 05/24/17 17:20 102 05/24/17 17:15 101 118/61 (80) 05/24/17 17:15 100 05/24/17 17:14 100 120/70 (87) 05/24/17 17:12 98 114/82 (93) 05/24/17 17:00 18 05/24/17 16:12 104 105/68 (80) 05/24/17 16:00 17 05/24/17 14:47 95 94/58 (70) Objective Remarks GENERAL: Well-nourished, well-developed patient. CARDIOVASCULAR: Regular rate and rhythm without murmurs, gallops, or rubs. RESPIRATORY: Breath sounds equal bilaterally. No accessory muscle use. ABDOMEN/GI: Abdomen soft, non-tender. Fundus: Firm, non-tender at umbilicus. GENITOURINARY: Light to moderate bleeding. EXTREMITIES: No cyanosis or edema, non-tender, without signs of DVT. Medications and IVs Current Medications Medications (Trade) Dose Ordered Sig/June Route Start Time Stop Time Status Last Admin (fentaNYL INJ) 100 mcg Q1H PRN IV PUSH 05/24/17 13:15 (Buprenorphine) 4 mg BID SL 05/24/17 21:00 05/24/17 21:38 Miscellaneous Information No systemic narcotics to be given except... UNSCH PRN .XX 05/24/17 18:00 05/25/17 17:59 Miscellaneous Information DO NOT ADMINISTER ANY ANTICOAGUL... UNSCH PRN .XX 05/24/17 18:00 05/25/17 17:59 (NS Flush) 2 ml BID IV FLUSH 05/25/17 09:00 (NS Flush) 2 ml UNSCH PRN IV FLUSH 05/25/17 02:45 Oxytocin 500 ml @ 100 mls/hr CONTINUOUS IV 05/25/17 02:45 05/25/17 07:44 05/25/17 04:44 (Tylenol) 650 mg Q4H PRN PO 05/25/17 02:45 (Motrin) 800 mg Q8H PRN PO 05/25/17 02:45 05/25/17 04:59 (Americaine 20% Top Spr) 1 spray Q4H PRN TOPICAL 05/25/17 02:45 05/25/17 04:59 (Tucks Pads) 1 applic QID PRN TOPICAL 05/25/17 02:45 05/25/17 04:59 (Gail-Colace) 2 tab Q12H PRN PO 05/25/17 02:45 (Ambien) 5 mg HS PRN PO 05/25/17 02:45 (M-M-R Ii Inj) 0.5 ml ONCE ONCE SQ 05/25/17 16:00 05/25/17 16:01 (Boostrix Inj) 0.5 ml ONCE ONCE IM 05/25/17 16:00 05/25/17 16:01 (Mag-Al Plus Susp Liq) 15 ml Q8H PRN PO 05/25/17 02:45 (Zofran Odt) 4 mg Q6H PRN PO 05/25/17 02:45 (Buprenorphine) 4 mg BID SL 05/25/17 09:00 Acetaminophen 100 ml @ 400 mls/hr Q6H IV 05/25/17 03:00 05/25/17 03:09 Assessment/Plan Assessment and Plan 37 yo s/p forceps at 38w2d 1. PPD #0: doing well, anticipate d/c home tomorrow 2. Fever: 101.4 right before delivery, afebrile since, no fundal TTP, continue to monitor for signs of endometritis. 3. Hep C: pt continue routine care no changes 4. Adoption: new born with new family. 5. Opioid use disorder: continue home subutex. Mack Hung MD May 25, 2017 07:35
[2017-05-25] MEDS ORDERED: SODIUM CHLORIDE 0.9% FLUSH 10 ML FLUSH IV FLUSH SCH (09:00)
[2017-05-25] MEDS ORDERED: BUPRENORPHINE HCL 8 MG SUBLINGUAL TAB SL SCH (09:00)
[2017-05-25] MEDS ORDERED: PILL SPLITTER OTHER PRN (09:15)
[2017-05-25] MEDS: BUPRENORPHINE HCL 8 MG SUBLINGUAL TAB SL SCH ×2 (10:05→21:17)
[2017-05-25] MEDS ORDERED: DIPHTH/TETANUS/ACEL PERTUSSIS (BOOSTER) 0.5 ML VIAL/PFS IM ONE (16:00)
[2017-05-25] MEDS ORDERED: MEASLES, MUMPS, RUBELLA VACCINE 0.5 ML VIAL SQ ONE (16:00)
--- NOTE | 2017-05-26 07:55 | HHI.OB ---
Subjective Post Day: 1 Remarks No pain, min bleeding, steph po Objective Vitals/I&O Vital Signs Date Time Temp Pulse Resp B/P (MAP) Pulse Ox O2 Delivery O2 Flow Rate FiO2 05/25/17 20:00 97.6 83 18 99/59 (72) 96 05/25/17 08:00 74 18 95/55 (68) 05/25/17 08:00 97.6 96/55 (69) 97 Objective Remarks GENERAL: Well-nourished, well-developed patient. CARDIOVASCULAR: Regular rate and rhythm without murmurs, gallops, or rubs. RESPIRATORY: Breath sounds equal bilaterally. No accessory muscle use. ABDOMEN/GI: Abdomen soft, non-tender. Fundus: Firm, non-tender at umbilicus. GENITOURINARY: Light to moderate bleeding. EXTREMITIES: No cyanosis or edema, non-tender, without signs of DVT. Medications and IVs Current Medications Medications (Trade) Dose Ordered Sig/June Route Start Time Stop Time Status Last Admin (fentaNYL INJ) 100 mcg Q1H PRN IV PUSH 05/24/17 13:15 (Buprenorphine) 4 mg BID SL 05/24/17 21:00 05/25/17 21:17 (NS Flush) 2 ml BID IV FLUSH 05/25/17 09:00 (NS Flush) 2 ml UNSCH PRN IV FLUSH 05/25/17 02:45 (Tylenol) 650 mg Q4H PRN PO 05/25/17 02:45 (Motrin) 800 mg Q8H PRN PO 05/25/17 02:45 05/25/17 21:17 (Americaine 20% Top Spr) 1 spray Q4H PRN TOPICAL 05/25/17 02:45 05/25/17 04:59 (Tucks Pads) 1 applic QID PRN TOPICAL 05/25/17 02:45 05/25/17 04:59 (Gail-Colace) 2 tab Q12H PRN PO 05/25/17 02:45 05/25/17 21:16 (Ambien) 5 mg HS PRN PO 05/25/17 02:45 (Mag-Al Plus Susp Liq) 15 ml Q8H PRN PO 05/25/17 02:45 (Zofran Odt) 4 mg Q6H PRN PO 05/25/17 02:45 (Pill Splitter) 1 ea UNSCH PRN OTHER 05/25/17 09:15 05/25/17 10:21 Assessment/Plan Assessment and Plan 37 yo s/p forceps at 38w2d 1. PPD #1: doing well, anticipate d/c home today as she had delivery at 2am on 05/25 2. Fever: 101.4 right before delivery, afebrile since, no fundal TTP, continue to monitor for signs of endometritis. 3. Hep C: pt continue routine care no changes 4. Adoption: new born with new family. 5. Opioid use disorder: continue home subutex. Discharge Planning today if adoption paperwork complete Cely Call MD May 26, 2017 07:55
[2017-05-26 09:00] VITALS: BP 113/78; PULSE 84; RESP 16; TEMP 97.9
== END 2017-05-26 16:19 | disposition home or self-care (01) | DRG 774 ==
LOC: H2EA 12:38 → H1EA 05-25 04:19
PROVIDERS: ADMIT Obstetrics & Gynecology; ATTEND Obstetrics & Gynecology
PROC: 10907ZC Drainage of Amniotic Fluid, Therapeutic from Products of Conception, Via Natural or Artificial Opening (ICD-10-PCS; 2017-05-24)
PROC: 3E033VJ Introduction of Other Hormone into Peripheral Vein, Percutaneous Approach (ICD-10-PCS; 2017-05-24)
PROC: 3E0P7VZ Introduction of Hormone into Female Reproductive, Via Natural or Artificial Opening (ICD-10-PCS; 2017-05-24)
PROC: 10D07Z4 Extraction of Products of Conception, Mid Forceps, Via Natural or Artificial Opening (ICD-10-PCS; principal; 2017-05-25)
DX: O40.3XX0 Polyhydramnios, third trimester, not applicable or unspecified (principal); O98.42 Viral hepatitis complicating childbirth; F11.20 Opioid dependence, uncomplicated; O99.324 Drug use complicating childbirth; B19.20 Unspecified viral hepatitis C without hepatic coma; Z37.0 Single live birth; Z3A.38 38 weeks gestation of pregnancy; O69.81X0 Labor and delivery complicated by cord around neck, without compression, not applicable or unspecified
CPT/HCPCS: 59025; 80307; 81001; 82805; 85025; 86592; 86762; 86900; 86901; J0131; J0690; J2590; J7120